=== PATIENT | male | born 1990 ===

== ENCOUNTER → 2017-03-28 | Outpatient (REF) | payer OTHER ==
[2017-03-28 16:01] LABS: % NORMAL FORMS 10 % (>=4); IMMOTILITY 34 %; NON PROGRESSIVE MOTILITY (c) 23 %; PROGRESSIVE MOTILITY (a) 43 % (>=32); SPERM# 137.2 M/Ejac (>=39); TOTAL MOTILITY 66 % (>=40)
[2017-03-28 16:02] LABS: TOTAL FUNCTIONAL 13.5 M/Ejac.; TOTAL PROGRESSIVE SPERM 59.4 M/Ejac.
== END ==
LOC: M LAB REF 15:14
PROVIDERS: ATTEND Physician Assistant
DX: N46.9 Male infertility, unspecified (principal)